=== PATIENT | female | born 1960 | race Caucasian/White ===

== ENCOUNTER 2024-08-24 10:38 | Emergency (ER) | payer OTHER ==
--- NOTE | 2024-08-24 10:45 | ER ---
Nurse's Notes [facility] Name: Neelam Galeano Age: 63 yrs Sex: Female : 1960 Arrival Date: 08/24/2024 Time: 10:38 Bed 6 Private MD: Diagnosis: Dog bite, bilateral arms Presentation: 08/24 10:40 Chief complaint: EMS states: Was walking dog and 2 other dogs tried to attack it, pt ph sustained bite injuries to bilateral forearms/wrists, bleeding controlled, PD aware and on scene. Coronavirus screen: Vaccine status: Patient reports receiving the 2nd dose of the covid vaccine. Ebola Screen: No symptoms or risks identified at this time. Initial Sepsis Screen: Does the patient meet any 2 criteria? No. Patient's initial sepsis screen is negative. Does the patient have a suspected source of infection? No. Patient's initial sepsis screen is negative. Risk Assessment: Do you want to hurt yourself or someone else? Patient reports no desire to harm self or others. Onset of symptoms was August 24, 2024. 10:40 Method Of Arrival: EMS: [facility] 10:40 Acuity: NIKI 3 ph Triage Assessment: 10:42 Bite description: bite sustained to dorsal aspect of left forearm. Bite description: ph bite sustained to dorsal aspect of right forearm. Bite description: by a dog, animal information: vaccination(s) is unknown. General: Appears in no apparent distress. comfortable, well groomed, Behavior is calm, cooperative, appropriate for age. Pain: Complains of pain in right arm and left arm. Neuro: Level of Consciousness is awake, alert, obeys commands, Oriented to person, place, time, situation. Cardiovascular: Capillary refill < 3 seconds in bilateral fingers Patient's skin is warm and dry. Respiratory: Airway is patent Respiratory effort is even, unlabored. Derm: Skin is pink, warm \T\ dry. Injury Description: Bite sustained to right arm and left arm caused by a dog. 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 - Infectious Disease History:: Denies. - Social history:: Smoking status: unknown. Screenin:43 [facility] ED Fall Risk Assessment (Adult) History of falling in the last 3 months, ph including since admission No falls in past 3 months (0 pts) Confusion or Disorientation No (0 pts) Intoxicated or Sedated No (0 pts) Impaired Gait No (0 pts) Mobility Assist Device Used No (0 pt) Altered Elimination No (0 pt) Score/Fall Risk Level 0 - 2 = Low Risk Oriented to surroundings, Maintained a safe environment, Hourly rounding (assess needs \T\ fall precautionary measures) done. Abuse screen: Denies threats or abuse. Denies injuries from another. Nutritional screening: No deficits noted. Tuberculosis screening: No symptoms or risk factors identified. Assessment: 10:44 Derm: Skin is healthy with good turgor. ph Vital Signs: 10:40 BP 135 / 89; Pulse 97; Resp 18; Temp 97.8; Pulse Ox 100% on R/A; Weight 61.23 kg; ph Height 5 ft. 4 in. ; 11:31 BP 127 / 89; Pulse 82; Resp 18; Pulse Ox 99% ; iw 10:40 Body Mass Index 23.17 (61.23 kg, 162.56 cm) ph ED Course: 10:39 Patient arrived in ED. ph 10:40 Elizabeth Bazan MD is Attending Physician. sp3 10:42 Triage completed. ph 10:43 Arm band placed on Patient placed in an exam room, on a stretcher, on pulse oximetry. ph 10:44 Patient has correct armband on for positive identification. Bed in low position. Call ph light in reach. Side rails up X 1. Pulse ox on. NIBP on. Door closed. Noise minimized. 10:52 No provider procedures requiring assistance completed. Patient did not have IV access hb during this emergency room visit. 10:52 Wound care: to multiple skin tears to bilat FA, small laceration to LFA. hb 11:07 Carolyn Miguel, RN is Primary Nurse. ph Administered Medications: 11:17 Drug: Tetanus Toxoid,Adsorbed IM 0.5 ml IM once; Provide Vaccine Information Statement ph (VIS). 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: [employer]; Exp: MonNov 02 2026; Lot #: [id number]; Series: 1 of 1; Patient Consent: Obtained; Date/Time: ; Source Name: Neelam Galeano; Source Relationship: Self; Address Information: [address] [place] [address], [facility] [address]; ; Education: Provided; VIS Presented Date: ; VIS Publication: Tetanus/Diphtheria (Td) Vaccine VIS 08/30/2016 (historic)} Route: IM; Site: left deltoid; 11:22 Follow up: Response: No adverse reaction ph 11:17 Drug: Amoxicillin-Clavulanate PO 875 mg PO once Route: PO; ph 11:22 Follow up: Response: No adverse reaction ph Medication: 10:44 VIS not applicable for this client. Outcome: 10:44 Discharge ordered by . [email or web address] 11:31 Discharged to home ambulatory, iw 11:31 Condition: good 11:31 Discharge instructions given to patient, Instructed on discharge instructions, follow up and referral plans. medication usage, Demonstrated understanding of instructions, follow-up care, medications, Prescriptions given X 1, 11:31 Patient left the ED. iw Signatures: Lorelei Pitt, RN Carolyn Hall, RN RN Katia Pittman, RN Elizabeth España MD MD sp3
--- NOTE | 2024-08-24 10:45 | EDPHYS ---
Physician Documentation [facility] Name: Neelam Galeano Age: 63 yrs Sex: Female : 1960 Arrival Date: 08/24/2024 Time: 10:38 Bed 6 Private MD: ED Physician Elizabeth Bazan HPI: 08/24 10:41 This 63 yrs old Female presents to ER via Unassigned with complaints of Dog Bite. sp3 10:41 63-year-old female with no significant past medical history presents via EMS for sp3 bilateral superficial lacerations and puncture wounds on bilateral forearms anterior and posterior from breaking up 2 pit bulls that were "fighting". Patient denies any other injuries. Review systems otherwise negative. See nursing note for further history on the animals.. Historical: - Allergies: 10:42 No Known Allergies; ph - Immunization history:: Adult Immunizations unknown. - Infectious Disease History:: Denies. - Social history:: Smoking status: unknown. ROS: 10:41 Constitutional: Negative for fever, chills, and weight loss, Eyes: Negative for injury, sp3 pain, redness, and discharge, ENT: Negative for injury, pain, and discharge, Neck: Negative for injury, pain, and swelling, Cardiovascular: Negative for chest pain, palpitations, and edema, Respiratory: Negative for shortness of breath, cough, wheezing, and pleuritic chest pain, Abdomen/GI: Negative for abdominal pain, nausea, vomiting, diarrhea, and constipation, Back: Negative for injury and pain, Neuro: Negative for headache, weakness, numbness, tingling, and seizure, Psych: Negative for depression, anxiety, suicide ideation, homicidal ideation, and hallucinations, Allergy/Immunology: Negative for hives, rash, and allergies, Endocrine: Negative for neck swelling, polydipsia, polyuria, polyphagia, and marked weight changes, 10:41 All other systems are negative, Exam: 10:41 Constitutional: This is a well developed, well nourished patient who is awake, alert, sp3 and in no acute distress. Head/Face: Normocephalic, atraumatic. Eyes: Pupils equal round and reactive to light, extra-ocular motions intact. Lids and lashes normal. Conjunctiva and sclera are non-icteric and not injected. Cornea within normal limits. Periorbital areas with no swelling, redness, or edema. Neck: Trachea midline, no thyromegaly or masses palpated, and no cervical lymphadenopathy. Supple, full range of motion without nuchal rigidity, or vertebral point tenderness. No Meningismus. Chest/axilla: Normal chest wall appearance and motion. Nontender with no deformity. No lesions are appreciated. Cardiovascular: Regular rate and rhythm with a normal S1 and S2. No gallops, murmurs, or rubs. Normal PMI, no JVD. No pulse deficits. Respiratory: Lungs have equal breath sounds bilaterally, clear to auscultation and percussion. No rales, rhonchi or wheezes noted. No increased work of breathing, no retractions or nasal flaring. Abdomen/GI: Soft, non-tender, with normal bowel sounds. No distension or tympany. No guarding or rebound. No evidence of tenderness throughout. Neuro: Awake and alert, GCS 15, oriented to person, place, time, and situation. Cranial nerves II-XII grossly intact. Motor strength 5/5 in all extremities. Sensory grossly intact. Cerebellar exam normal. Normal gait. Psych: Awake, alert, with orientation to person, place and time. Behavior, mood, and affect are within normal limits. 10:41 Musculoskeletal/extremity: Bilateral superficial lacerations, abrasions and 2 small puncture wounds noted predominantly on the posterior forearm bilaterally. There does not appear to be any significant injury or puncture over tendons or other critical structures. Distal neurovascular exams bilaterally normal. No significant bleeding noted.. Vital Signs: 10:40 BP 135 / 89; Pulse 97; Resp 18; Temp 97.8; Pulse Ox 100% on R/A; Weight 61.23 kg; ph Height 5 ft. 4 in. ; 11:31 BP 127 / 89; Pulse 82; Resp 18; Pulse Ox 99% ; iw 10:40 Body Mass Index 23.17 (61.23 kg, 162.56 cm) ph MDM: 10:41 Medical Screening Exam initiated sp3 10:42 Data reviewed: vital signs, nurses notes. ED course: 63-year-old female with sp3 superficial wounds of dog bite. Wounds will be cleaned and bandaged the patient will be discharged on Augmentin p.o. Tetanus updated.. 08/24 10:43 Order name: Wound Care; Complete Time: 10:44 sp3 Administered Medications: 11:17 Drug: Tetanus Toxoid,Adsorbed IM 0.5 ml IM once; Provide Vaccine Information Statement ph (VIS). 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: [employer]; Exp: MonNov 02 2026; Lot #: [id number]; Series: 1 of 1; Patient Consent: Obtained; Date/Time: ; Source Name: Neelam Galeano; Source Relationship: Self; Address Information: [address] [place] [id number]; ; Education: Provided; VIS Presented Date: ; VIS Publication: Tetanus/Diphtheria (Td) Vaccine VIS 08/30/2016 (historic)} Route: IM; Site: left deltoid; 11:22 Follow up: Response: No adverse reaction ph 11:17 Drug: Amoxicillin-Clavulanate PO 875 mg PO once Route: PO; ph 11:22 Follow up: Response: No adverse reaction ph Disposition Summary: 08/24/24 10:44 Discharge Ordered Notes: Location: Home sp3 Condition: Stable sp3 Diagnosis - Dog bite, bilateral arms sp3 Followup: sp3 - With: Private Physician - When: Upon discharge from the Emergency Department - Reason: Continuance of care Discharge Instructions: - Discharge Summary Sheet sp3 - Animal Bite, Adult sp3 Forms: - Medication Reconciliation Form sp3 - Antibiotic Education sp3 - Prescription Opioid Use sp3 - Patient Portal Instructions sp3 - Leadership Thank You Letter sp3 Prescriptions: - Augmentin 875-125 mg Oral Tablet - take 1 tablet ORAL route every 12 hours for 10 days; 20 tablet; Refills: 0, sp3 Product Selection Permitted Signatures: Carolyn Miguel, RN RN ph Elizabeth Bazan MD MD sp3
[2024-08-24] MEDS ORDERED: AMOX/K CLAV 875 MG TAB ONE (11:07)
[2024-08-24] MEDS ORDERED: TDAP (DIPHTH,PERTUSS(ACELL),TET VAC) 0.5 ML VIAL IMVAC ONE (11:08)
[2024-08-24 11:37] VITALS: TEMP 97.8
[2024-08-24 11:38] VITALS: BP 127/89; O2SAT 99
== END 2024-08-24 11:31 | disposition home or self-care (01) ==
LOC: ER 10:38
DX: S51.832A Puncture wound without foreign body of left forearm, initial encounter (principal); S51.831A Puncture wound without foreign body of right forearm, initial encounter; W54.0XXA Bitten by dog, initial encounter; Z23 Encounter for immunization
CPT/HCPCS: 90471; 90715; 99284